=== PATIENT | male | born 1950 | race Caucasian/White ===

== ENCOUNTER → 2017-08-31 | Outpatient (CLI) | payer MEDICARE, OTHER ==
[2017-08-31 18:28] LABS: PSA SCREENING 1.72 NG/ML (< 4.0)
[2017-08-31 18:49] LABS: APPEARANCE, URINE CLEAR (CLEAR); BACTERIA, URINE AUTO NEGATIVE (NEGATIVE); BILIRUBIN, URINE AUTO NEGATIVE (NEGATIVE); BLOOD, URINE BLOOD NEGATIVE (NEGATIVE); COLOR, URINE YELLOW (YELLOW); GLUCOSE, URINE (UA) AUTO NEGATIVE (NEGATIVE); KETONE, URINE AUTO NEGATIVE (NEGATIVE); LEUKOCYTE ESTERASE, URINE AUTO NEGATIVE (NEGATIVE); NITRITE, URINE AUTO NEGATIVE (NEGATIVE); PROTEIN, URINE AUTO NEGATIVE (NEGATIVE); RBC, URINE AUTO 0 /HPF (0-3); SPECIFIC GRAVITY URINE AUTO 1.011 (1.002-1.035); SQUAMOUS EPITHELIAL CELL UR AU 0 /HPF (0-6); UROBILINOGEN, URINE AUTO 0.2 mg/dL (0.0-2.0); WBC, URINE AUTO 0 /HPF (0-3)
== END ==
LOC: M SMT 13:50
DX: Z12.5 Encounter for screening for malignant neoplasm of prostate (principal); R35.0 Frequency of micturition
CPT/HCPCS: G0103

== ENCOUNTER → 2017-09-24 | Outpatient (REF) | payer MEDICARE, MEDICAID ==
[2017-09-24 13:37] LABS: ALBUMIN/GLOBULIN RATIO 1.25 (1.00-1.93); ALKALINE PHOSPHATASE 62 U/L (45-117); ALT/SGPT 34 U/L (12-78); ANION GAP 6 MEQ/L (8-16); AST/SGOT 23 U/L (7-37); BILIRUBIN,TOTAL 0.5 MG/DL (0.2-1.0); BLOOD UREA NITROGEN 11 MG/DL (7-18); CALCIUM LEVEL 8.6 MG/DL (8.8-10.2); CARBON DIOXIDE LEVEL 27 MEQ/L (21-32); CHLORIDE LEVEL 110 MEQ/L (98-107); CHOLESTEROL LEVEL 102 MG/DL (<200); CHOLESTEROL RISK RATIO 2.372 (<5); CREATININE FOR GFR 0.89 MG/DL (0.70-1.30); GLOMERULAR FILTRATION RATE > 60.0 (>49); GLUCOSE, FASTING 112 MG/DL (70-100); HDL CHOLESTEROL 43 MG/DL (>40); LDL CHOLESTEROL 43.8 MG/DL (<100); NON-HDL-C 59 MG/DL; POTASSIUM SERUM 4.6 MEQ/L (3.5-5.1); PROSTATIC SPECIFIC AG MONITOR 1.85 NG/ML (< 4.0); SODIUM LEVEL 143 MEQ/L (136-145); TOTAL PROTEIN 7.2 GM/DL (6.4-8.2); TRIGLYCERIDES LEVEL 76 MG/DL (<150)
== END ==
LOC: M LAB REF 12:44
DX: I10 Essential (primary) hypertension (principal); R35.0 Frequency of micturition
CPT/HCPCS: 84443

== ENCOUNTER → 2018-09-08 | Outpatient (CLI) | payer MEDICARE, MEDICAID ==
[~2018-09-08] MED LIST: AMOX875T PO; OXYC-423 PO
--- NOTE | 2018-09-08 14:16 | REP ---
Clinical: [facility] healthcare Comparison: 07/08/2015 . Technique: PA and lateral. Findings: The mediastinum demonstrates stable chronic scoliosis and relatively normal / stable appearance to the thoracic aorta and cardiac silhouette. No obvious adenopathy. Lung jones demonstrate chronic interstitial changes. A subtle rounded area of opacity in the right mid lung zone midclavicular line measuring roughly 12.8 mm is identified. Asymmetric nipple shadow versus nodule cannot be excluded. No effusion. No pneumothorax. Skeletal structures stable. Impression: 1. Subtle 12.8 mm opacity in the right mid lung zone. Differential diagnosis includes asymmetric nipple shadow versus lung nodule. Consider repeat chest x-ray with nipple markers and/or chest CT if necessary. Electronically Signed by Dmitry Sheldon MD 09/08/2018 02:08 P
--- NOTE | 2018-09-08 19:33 | ECGEPIP ---
Stationary ECG Study [facility] Test Date: 2018-09-08 Pat Name: WILLIAM PEREZ Department: Room: - Gender: M Chest Pain Coordinator: LAKISHA : 1950 Requested By: Riley Hernandez Order Number: [id number] Reading MD: Dinesh Soto Measurements Intervals [place] Rate: 51 P: 75 DC: 139 QRS: 47 QRSD: 98 T: 56 QT: 443 QTc: 410 Interpretive Statements SINUS BRADYCARDIA SIMILAR 07/08/15 Electronically Signed On 09-08-2018 19:32:59 EDT by Dinesh Soto
== END ==
LOC: M EKG 10:48
PROVIDERS: ATTEND Family Medicine Addiction Medicine
DX: Z01.818 Encounter for other preprocedural examination (principal); N48.6 Induration penis plastica; R91.8 Other nonspecific abnormal finding of lung field; R00.1 Bradycardia, unspecified

== ENCOUNTER → 2018-09-26 | Outpatient (CLI) | payer MEDICARE ==
[2018-09-26 19:20] LABS: INR 1.02; PROTHROMBIN TIME 13.5 SECONDS (12.1-14.4)
[2018-09-26 19:21] LABS: PARTIAL THROMBOPLASTIN TIME 39.6 SECONDS (25.4-37.6)
== END ==
LOC: M SMT 14:04
PROVIDERS: ATTEND Urology
DX: N18.6 End stage renal disease (principal)

== ENCOUNTER 2018-09-30 06:17 | Day surgery (SDC) | payer MEDICARE, MEDICAID ==
[~2018-09-30] VITALS: Ht 175.3 cm; Wt 62.6 kg
[2018-09-30] MEDS ORDERED: LR 1,000 ML IV ONE (07:00)
[2018-09-30] MEDS ORDERED: ROCURONIUM BROMIDE 50 MG/5 ML VIAL As Ordered ONE (07:06)
[2018-09-30] MEDS ORDERED: fentaNYL 100 MCG/2 ML INJECTION (J3010) As Ordered ONE ×2 (07:06→10:17)
[2018-09-30] MEDS ORDERED: dexameTHASONE 4 MG/ML 1ML VIAL (J1100) As Ordered ONE (07:06)
[2018-09-30] MEDS ORDERED: NEOSTIGMINE 10 MG/10 ML VIAL (J2710) As Ordered ONE (07:06)
[2018-09-30] MEDS ORDERED: LIDOCAINE 2% INJ 100 MG/5 ML SDV (FOR ANES.) As Ordered ONE (07:06)
[2018-09-30] MEDS ORDERED: GLYCOPYRROLATE INJ 0.2 MG/ML 2 ML VIAL As Ordered ONE (07:06)
[2018-09-30] MEDS ORDERED: ONDANSETRON 4MG/2ML VIAL (J2405) As Ordered ONE ×2 (07:06→10:17)
[2018-09-30] MEDS ORDERED: PROPOFOL 200 MG/20 ML VIAL As Ordered ONE (07:06)
[2018-09-30] MEDS ORDERED: MIDAZOLAM INJ 2 MG/2 ML VIAL (J2250) As Ordered ONE (07:07)
[2018-09-30] MEDS ORDERED: KETOROLAC 60 MG/2 ML VIAL (J1885) As Ordered ONE (07:07)
[2018-09-30] MEDS ORDERED: ALBUTEROL SULFATE 2.5 MG/0.5 ML INH NEB SOLN As Ordered ONE (07:11)
[2018-09-30] MEDS ORDERED: ALBUTEROL SULFATE 2.5 MG/0.5 ML INH NEB SOLN INH ONE (07:30)
[2018-09-30] MEDS ORDERED: BACITRACIN OINT 30GM As Ordered ONE (09:42)
[2018-09-30] MEDS ORDERED: PERCOCET 5MG/325MG TAB As Ordered ONE (10:17)
[2018-09-30] MEDS ORDERED: HYDROMORPHONE HCL 0.5 MG/ 0.5 ML SYRINGE (J1170 PER 1) As Ordered ONE (10:17)
[2018-09-30] MEDS: fentaNYL 100 MCG/2 ML INJECTION (J3010) IV PRN ×4 (10:20→10:35)
[2018-09-30] MEDS: PERCOCET 5MG/325MG TAB PO PRN ×2 (10:20→10:50)
[2018-09-30] MEDS ORDERED: PERCOCET 5MG/325MG TAB PO PRN ×2 (10:30)
[2018-09-30] MEDS ORDERED: ONDANSETRON 4MG/2ML VIAL (J2405) IV PRN (10:30)
[2018-09-30] MEDS ORDERED: LR 1,000 ML IV SCH (10:30)
[2018-09-30] MEDS: HYDROMORPHONE HCL 0.5 MG/ 0.5 ML SYRINGE (J1170 PER 1) IV PRN ×5 (10:40→11:00)
[2018-09-30 11:10] VITALS: BP 144/88
--- NOTE | 2018-09-30 14:05 | RO ---
DATE OF PROCEDURE: 09/30/2018 PREPROCEDURE DIAGNOSIS: Peyronie's disease. POSTPROCEDURE DIAGNOSIS: Peyronie's disease. PROCEDURE: Penile plication, circumcision. SURGEON: Dr. Lul Purvis REAL ESTATE RECRUITER: None. ANESTHESIA: General. OPERATIVE INDICATIONS: This is a 67-year-old male who has been seen in our office for Peyronie's disease for an approximately 45 degrees dorsal curvature. He requested treatment for this and was brought to the operating room today for treatment. DESCRIPTION OF PROCEDURE: The patient was brought to the operating room where general anesthesia was induced. Prophylactic antibiotics were infused. He was then placed in the supine position and prepped and draped in the usual sterile fashion. At this point, circumcising incisions were made at the level of the coronal sulcus with the foreskin pulled over the glans and then with the foreskin retracted down away from the glans. All the foreskin between the circumcising incisions was then removed using electrocautery. At this point, an artificial erection was performed using normal saline and of note the patient had an approximately 45 degrees dorsal curvature which was at the level of approximately 1-2 inches just proximal to the level of the coronal sulcus. This therefore was a distal curvature. At this point, we dissected down and opened Mackey's fascia. Allis clamps were utilized to counter the curvature and to straighten the penis. The location of the Allis clamps were then marked. Allis clamps were placed on either side of the urethra to perform the counter pull. Once this was done, the corpus cavernosum on either side of the urethra was then opened with a scalpel. This was done longitudinally in the areas where the Allis clamps were placed. Once that was done, both of these incisions were then brought together using a single #3-0 Prolene suture which was then buried. The longitudinal incisions were closed transversely using the Prolene suture and a running #3-0 PDS suture. Once this was done, artificial erection was performed again and this did appear to straighten out the curvature. We then closed Mackey's fascia using running #4-0 chromic suture. We then checked for hemostasis and any areas of bleeding were then controlled with electrocautery. Once this was done, the remaining skin of the penile shaft was reapproximated to the glans penis using interrupted #2-0 chromic sutures. When that was done, dressings were applied and this marked the conclusion of the procedure. Of note, dressings included Raymundo wrapped around the circumcision line, followed by Elanaan. This marked the conclusion of the procedure. The patient was then awakened from anesthesia and transported to the recovery room in stable condition. Estimated blood loss: 10 mL. Complications: None. Specimen: Foreskin. Plan: The patient will followup in the clinic in a few weeks for a postoperative visit. I will have him take his dressings off in three days. MEHNAZ
== END 2018-09-30 11:40 | disposition home or self-care (01) ==
LOC: M SDC 06:17
PROVIDERS: ATTEND Urology
DX: N48.6 Induration penis plastica (principal); R35.0 Frequency of micturition; R35.1 Nocturia; F17.210 Nicotine dependence, cigarettes, uncomplicated; Z79.899 Other long term (current) drug therapy; M41.9 Scoliosis, unspecified
CPT/HCPCS: 54161; 54300; 88304; J0690; J1100; J1885; J2250; J2405; J2710; J3010

== ENCOUNTER → 2019-04-05 | Outpatient (REF) | payer MEDICARE, MEDICAID ==
[2019-04-05 13:14] LABS: BASO % 0.3 % (0.0-1.0); EOS # 0.1 10^3/uL (0.0-0.5); EOS % 1.6 % (0.0-3.0); HEMATOCRIT 46.2 % (42.0-52.0); HEMOGLOBIN 14.9 g/dl (13.5-17.5); LYMPH # 2.4 10^3/uL (1.5-5.0); LYMPH % 35.3 % (24.0-44.0); MEAN CORPUSCULAR HEMOGLOBIN 30.7 pg (27.0-33.0); MEAN CORPUSCULAR HGB CONC 32.3 g/dl (32.0-36.5); MEAN CORPUSCULAR VOLUME 95.1 fl (80.0-96.0); MONO # 0.6 10^3/uL (0.0-0.8); MONO % 8.2 % (0.0-5.0); NEUTROPHILS # 3.8 10^3/uL (1.5-8.5); NEUTROPHILS % 54.6 % (36.0-66.0); PLATELET COUNT, AUTOMATED 218 10^3/uL (150-450); RED BLOOD COUNT 4.86 10^6/uL (4.30-6.10); WHITE BLOOD COUNT 6.9 10^3/uL (4.0-10.0)
[2019-04-05 13:38] LABS: ALBUMIN 3.6 GM/DL (3.2-5.2); ALT/SGPT 47 U/L (12-78); BILIRUBIN,TOTAL 0.9 MG/DL (0.2-1.0); BLOOD UREA NITROGEN 15 MG/DL (7-18); CARBON DIOXIDE LEVEL 29 MEQ/L (21-32); CHLORIDE LEVEL 106 MEQ/L (98-107); CHOLESTEROL LEVEL 104 MG/DL (<200); CHOLESTEROL RISK RATIO 2.363 (<5); CREATININE FOR GFR 0.88 MG/DL (0.70-1.30); GLOMERULAR FILTRATION RATE > 60.0 (>49); GLUCOSE, FASTING 104 MG/DL (70-100); HDL CHOLESTEROL 44 MG/DL (>40); LDL CHOLESTEROL 52 MG/DL (<100); NON-HDL-C 60 MG/DL; POTASSIUM SERUM 4.5 MEQ/L (3.5-5.1); SODIUM LEVEL 141 MEQ/L (136-145); TOTAL PROTEIN 6.8 GM/DL (6.4-8.2); TRIGLYCERIDES LEVEL 38 MG/DL (<150)
[2019-04-05 13:45] LABS: HEMOGLOBIN A1c 6.1 %
== END ==
LOC: M LAB REF 11:45
PROVIDERS: ATTEND Nurse Practitioner Family
DX: Z00.01 Encounter for general adult medical examination with abnormal findings (principal)

== ENCOUNTER → 2019-04-26 | Outpatient (CLI) | payer MEDICARE, MEDICAID ==
--- NOTE | 2019-04-27 05:39 | REP ---
Clinical: Lung screening. History smoking. Comparison: None Technique: Axial low-dose noncontrast images from the thoracic inlet to the upper abdomen using lung screening technique. Findings: Early emphysematous changes are appreciated along with minimal scattered scarring and scattered partially calcified pleural plaques suggesting asbestosis. A 9 mm noncalcified subpleural nodule in the anterior right upper lobe (image 47) is not otherwise specific in appearance. No pleural effusion/reaction or pneumothorax. Tracheobronchial tree is patent. Mediastinum demonstrates mild atherosclerotic changes of the coronary arteries without cardiomegaly. Impression: 1. Lung-RADS category IV-S. Findings consistent with asbestosis. 2. 9 mm noncalcified subpleural nodule. While this may represent a somewhat bulbous plaque, further pathology cannot be excluded given the patient's history. Management recommendations include 3-month CT follow-up examination. Electronically Signed by Dmitry Sheldon MD 04/27/2019 05:31 A
== END ==
LOC: M RAD 08:57
PROVIDERS: ATTEND Nurse Practitioner Family
DX: F17.210 Nicotine dependence, cigarettes, uncomplicated (principal)

== ENCOUNTER → 2019-07-04 | Outpatient (CLI) | payer MEDICARE, MEDICAID ==
--- NOTE | 2019-07-04 14:06 | REP ---
PET/CT: History: Diagnosing lung cancer. Solitary pulmonary nodule. Comparisons: Comparison low-dose screening chest CT April 26, 2019. TECHNIQUE: 56 minutes following the intravenous injection of a 8.30 mCi dose of F-18 FDG, three-dimensional PET scintigraphy is acquired from the skull base to the proximal thighs. Triplanar noncontrast CT scanning is acquired through the same anatomic range for attenuation correction, and image registration with scan parameters optimized to minimize radiation exposure to the patient. PET scintigraphy and CT datasets were fused and displayed on a workstation with multiplanar and projection display capability. PET/CT Findings: There is no discernible radiotracer accumulation in the pleural-based nodule noted in the right middle lobe on recent CT study. Maximum standard uptake value is 0.51. No other abnormal hypermetabolic uptake is seen in the pulmonary parenchyma. No hilar or mediastinal hypermetabolic uptake is observed. There is some calcific pleural plaquing on the right diaphragm. Head and neck soft tissues are unremarkable. There is some normal variant skeletal muscle uptake about the left shoulder. Thoracolumbar scoliosis is seen. No abnormal hypermetabolic uptake is seen in the abdomen or pelvis. Impression: There is no abnormal hypermetabolic uptake. Calcific pleural plaquing is noted on the right. No visible uptake in the right middle lobe nodule. Electronically Signed by Haresh Polk MD 07/04/2019 02:40 P
== END ==
LOC: M PLARAD 08:56
PROVIDERS: ATTEND Internal Medicine Pulmonary Disease
DX: R91.8 Other nonspecific abnormal finding of lung field (principal)
CPT/HCPCS: 78815; A9552

== ENCOUNTER → 2024-07-04 | Outpatient (REF) | payer OTHER, MEDICAID ==
[2024-07-04 17:18] LABS: HEMATOCRIT 46.9 % (42.0-52.0); HEMOGLOBIN 15.4 g/dl (13.5-17.5); MEAN CORPUSCULAR HEMOGLOBIN 30.3 pg (27.0-33.0); MEAN CORPUSCULAR HGB CONC 32.8 g/dl (32.0-36.5); MEAN CORPUSCULAR VOLUME 92.3 fl (80.0-96.0); PLATELET COUNT, AUTOMATED 249 10^3/uL (150-450); RED BLOOD COUNT 5.08 10^6/uL (4.30-6.10); WHITE BLOOD COUNT 8.6 10^3/uL (4.0-10.0)
[2024-07-04 17:46] LABS: ALBUMIN 3.8 G/DL (3.2-5.2); ALKALINE PHOSPHATASE 60 U/L (40-129); ALT/SGPT 63 U/L (7.0-40); AST/SGOT 36 U/L (<34); BILIRUBIN,TOTAL 0.8 MG/DL (0.3-1.2); BLOOD UREA NITROGEN 18 MG/DL (9-23); CALCIUM LEVEL 9.5 MG/DL (8.3-10.6); CARBON DIOXIDE LEVEL 30 MMOL/L (20-31); CHLORIDE LEVEL 105 MMOL/L (98-107); CHOLESTEROL LEVEL 139 MG/DL (<200); CHOLESTEROL RISK RATIO 2.58 (<5); CREATININE FOR GFR 0.83 MG/DL (0.70-1.30); GLOMERULAR FILTRATION RATE > 60.0 (>42); GLUCOSE, FASTING 99 MG/DL (74-106); HDL CHOLESTEROL 53.8 MG/DL (>40); LDL CHOLESTEROL 74.2 MG/DL (<100); NON-HDL-C 85.2 MG/DL; POTASSIUM SERUM 5.4 MMOL/L (3.5-5.1); PSA SCREENING 3.23 NG/ML (< 4.00); SODIUM LEVEL 142 MMOL/L (136-145); TOTAL PROTEIN 7.5 G/DL (5.7-8.2); TRIGLYCERIDES LEVEL 55 MG/DL (<150)
[2024-07-04 18:05] LABS: HEMOGLOBIN A1c 5.8 % (4.0-6.0)
== END ==
LOC: M LAB REF 16:03
PROVIDERS: ATTEND Student in an Organized Health Care Education/Training Program
DX: Z00.01 Encounter for general adult medical examination with abnormal findings (principal); R35.0 Frequency of micturition; E78.00 Pure hypercholesterolemia, unspecified; Z12.5 Encounter for screening for malignant neoplasm of prostate
CPT/HCPCS: 80053; 80061; 83036; 84443; 85027; G0103

== ENCOUNTER → 2024-10-09 | Outpatient (REF) | payer OTHER, MEDICAID ==
[2024-10-09 14:05] LABS: ALBUMIN 3.5 G/DL (3.2-5.2); ALKALINE PHOSPHATASE 68 U/L (40-129); ALT/SGPT 41 U/L (7.0-40); AST/SGOT 27 U/L (<34); BILIRUBIN,TOTAL 0.8 MG/DL (0.3-1.2); BLOOD UREA NITROGEN 18 MG/DL (9-23); CALCIUM LEVEL 9.5 MG/DL (8.3-10.6); CARBON DIOXIDE LEVEL 28 MMOL/L (20-31); CHLORIDE LEVEL 105 MMOL/L (98-107); CHOLESTEROL LEVEL 123 MG/DL (<200); CHOLESTEROL RISK RATIO 3.15 (<5); CREATININE FOR GFR 0.86 MG/DL (0.70-1.30); GLOMERULAR FILTRATION RATE > 90.0 (>42); GLUCOSE, FASTING 100 MG/DL (74-106); LDL CHOLESTEROL 60.6 MG/DL (<100); POTASSIUM SERUM 4.5 MMOL/L (3.5-5.1); SODIUM LEVEL 141 MMOL/L (136-145); TOTAL PROTEIN 6.8 G/DL (5.7-8.2); TRIGLYCERIDES LEVEL 117 MG/DL (<150)
[2024-10-09 14:10] LABS: HEMOGLOBIN A1c 5.7 % (4.0-6.0)
== END ==
LOC: M LAB REF 12:36
PROVIDERS: ATTEND Student in an Organized Health Care Education/Training Program
DX: I10 Essential (primary) hypertension (principal); R73.03 Prediabetes; R74.01 Elevation of levels of liver transaminase levels